=== PATIENT | male | born 1955 | race Caucasian/White ===

== ENCOUNTER 2021-10-26 06:29 | Emergency (ER) | payer OTHER ==
[~2021-10-26] VITALS: Ht 175.3 cm; Wt 90.7 kg
[~2021-10-26 06:29] MED LIST: ASPI325T4 OR; ATEN50TA OR; AZIT250T9 OR; CYCL-839 OR; FLUN0.02; GABA300C10 OR; GEMF-19 OR; IPRASOL44 IN; LISI-716 OR; MIRT1TAB14 OR; OMEP20TA37 OR; PERCOT PO; SIMV-8 OR; TERA2CAP45 OR
[2021-10-26] MEDS ORDERED: SODIUM CHLORIDE 0.9% 1,000 ML IV ONE (07:15)
[2021-10-26 10:21] LABS: Basophils # (auto) 0 10 ^3/uL (0-0.2); Eosinophils # (auto) 0 10 ^3/uL (0-0.8); Monocytes # (auto) 0.4 10 ^3/uL (0-1.3); Neutrophils # (auto) 4.4 10 ^3/uL (1.6-8.6); White Blood Cell 5.8 10^3/uL (4.4-10.8)
[2021-10-26 10:26] LABS: Basophils % (auto) 0.4 % (0.0-2.0); Hematocrit 40.6 % (41.0-53.0); Hemoglobin 13.9 g/dL (13.5-17.5); Lymphocytes # (auto) 0.9 10 ^3/uL (0.4-5.4); Lymphocytes % (auto) 15.6 % (10.0-50.0); Mean Corpuscular Hemoglobin 34.7 pg (28.0-32.0); Mean Corpuscular Hgb Conc. 34.3 g/dL (32.0-36.0); Mean Corpuscular Volume 101.1 fL (80.0-100.0); Monocytes % (auto) 7.2 % (0.0-12.0); Neutrophils % (auto) 76.8 % (37.0-80.0); Red Blood Cells 4.02 10^6/uL (4.5-5.90); Red Cell Distribution Width 14.1 % (11.8-14.3)
[2021-10-26 11:12] LABS: Albumin 3.5 g/dL (3.4-5.0); Potassium 3.9 mmol/L (3.5-5.1)
[2021-10-26 11:19] LABS: BUN/Creatinine Ratio 13.2; Bilirubin, Total 0.3 mg/dL (0.2-1.0)
[2021-10-26 12:09] VITALS: BP 127/70
[2021-10-26] MEDS ORDERED: DOCU-94 PO (12:28)
== END 2021-10-26 11:49 | disposition home or self-care (01) ==
LOC: EDBD 06:29 → ER 06:29
DX: R10.84 Generalized abdominal pain (principal); R11.2 Nausea with vomiting, unspecified; I10 Essential (primary) hypertension; I25.10 Atherosclerotic heart disease of native coronary artery without angina pectoris; Z79.82 Long term (current) use of aspirin; Z79.2 Long term (current) use of antibiotics; Z79.899 Other long term (current) drug therapy; Z88.0 Allergy status to penicillin
CPT/HCPCS: 36415; 71045; 74176; 80053; 84484; 85025; 96360; 96361; 99285; J7030

== ENCOUNTER 2024-07-21 21:41 | Inpatient (IN) | payer MEDICAID, MEDICARE, OTHER ==
[~2024-07-21] VITALS: Ht 167.6 cm; Wt 55.3 kg
[~2024-07-21 21:41] MED LIST changes: -ASPI325T4 OR; +ASPI325T6 OR; +AZIT-43 OR; -AZIT250T9 OR; +DOCU-94 PO; +GABA-1250 OR; -GABA300C10 OR; -GEMF-19 OR; +GEMF-66 OR; -LISI-716 OR; +LISI10TA34 OR; -SIMV-8 OR; +SIMV20TA20 OR; -TERA2CAP45 OR; +TERA2CAP79 OR
[2024-07-21 22:18] LABS: Hematocrit 43.1 % (41.0-53.0); Hemoglobin 14.4 g/dL (13.5-17.5); Mean Corpuscular Hemoglobin 29.8 pg (28.0-32.0); Mean Corpuscular Hgb Conc. 33.4 g/dL (32.0-36.0); Mean Corpuscular Volume 89.3 fL (80.0-100.0); Platelet Count (auto) 237 10^3/uL (140-450); Red Blood Cells 4.82 10^6/uL (4.5-5.90); Red Cell Distribution Width 16.6 % (11.8-14.3); White Blood Cell 12.7 10^3/uL (4.4-10.8)
[2024-07-21 22:24] LABS: Band Neutrophils % (manual) 0; Basophils % (manual) 0 (0.0-2.0); Blast Cells 0; Eosinophils % (manual) 0 (0-7); Metamyelocytes % 0; Myelocytes % 0; Promyelocytes % 0
[2024-07-21 22:31] LABS: Alanine Aminotransferase 34 U/L (7-40); Albumin 4.5 g/dL (3.2-4.8); Alkaline Phosphatase 92 U/L (46-116); Anion Gap 6 (5-15); Aspartate Aminotransferase 14 U/L (13-40); BUN/Creatinine Ratio 14.3 (10.0-20.0); Bilirubin, Total 0.3 mg/dL (0.2-1.0); Blood Urea Nitrogen 15 mg/dL (9-23); Calcium 9.6 mg/dL (8.7-10.4); Carbon Dioxide 29 mmol/L (20-31); Chloride 104 mmol/L (98-107); Glucose 205 mg/dL (74-106); Magnesium 2.2 mg/dL (1.6-2.6); Sodium 139 mmol/L (136-145); Total Protein 6.8 g/dL (5.7-8.2)
[2024-07-21 22:38] VITALS: PULSE 99; RESP 29; O2SAT 95
[2024-07-21 23:04] LABS: Lymphocytes % (manual) 10 (10.0-50.0); Reactive Lymphocytes 1
[2024-07-21 23:05] LABS: Monocytes % (manual) 10 (0-12); Platelet Estimate Adequate
[2024-07-21] MEDS: ALBUTEROL SULF 2.5 MG/0.5ML(0.5%) NEB SOLN NEB ONE (23:15)
[2024-07-21] MEDS: methylPREDNISolone SOD SUCC 125 MG/2 ML VL IV ONE (23:20)
[2024-07-22] VITALS (9 sets, daily range): BP systolic 111–133; BP diastolic 66–92; PULSE 59–78; RESP 18–22; TEMP 97.8–99.2; O2SAT 92–100
[2024-07-22] MEDS: ASPirin 81 mg TAB PO ONE
[2024-07-22] MEDS: NITROGLYCERIN 2% OINT 1GM PKG TD ONE (00:17)
[2024-07-22 00:39] LABS: Base Excess -4.8 mmol/L (-2.0-3.0)
[2024-07-22 01:53] LABS: Base Excess -1.8 mmol/L (-2.0-3.0)
[2024-07-22] MEDS ORDERED: MORPHINE SULFATE INJ 2 MG/ml SYRG IV PRN (04:30)
[2024-07-22] MEDS ORDERED: NITROGLYCERIN 0.4 MG SL TAB SL PRN (04:30)
[2024-07-22] MEDS ORDERED: ONDANSETRON HCL 4 MG/2 ML VIAL IV PRN (04:30)
[2024-07-22] MEDS: AZITHROMYCIN 500MG/ 250ML 250 ML IV ONE (05:53)
[2024-07-22] MEDS: IPRATROPIUM BROM 0.5 MG/2.5ML INH SOL NEB PRN (06:39)
[2024-07-22] MEDS: ALBUTEROL SULF 2.5 MG/0.5ML(0.5%) NEB SOLN NEB PRN (06:39)
[2024-07-22 07:02] LABS: Urine Bacteria None Seen /hpf (None Seen)
[2024-07-22 07:32] LABS: Urine Blood Negative /uL (Negative); Urine Clarity Clear (Clear); Urine Color Light-Yellow (Yellow); Urine Protein, UAD TRACE (Negative); Urine Specific Gravity 1.021 (1.001-1.035); Urine Urobilinogen Normal (Negative); Urine WBC <1 /hpf (0 - 3); Urine pH 5.5 (5.0-9.0)
[2024-07-22] MEDS: GEMFIBROZIL 600 MG TAB PO SCH (10:20)
[2024-07-22] MEDS: ASPirin 81 mg TAB PO SCH (10:21)
[2024-07-22] MEDS: ATENOLOL 25 MG TAB PO SCH (10:22)
[2024-07-22] MEDS: ENOXAPARIN SOD 40 MG/0.4 ML SYRINGE SC SCH (10:22)
[2024-07-22] MEDS: ATORVASTATIN 20 MG TAB PO SCH (21:20)
[2024-07-23] VITALS (15 sets, daily range): BP systolic 116–150; BP diastolic 66–88; PULSE 54–88; RESP 16–19; TEMP 97.4–98.2; O2SAT 93–100
[2024-07-23 07:09] LABS: Anion Gap 3 (5-15); Carbon Dioxide 34 mmol/L (20-31); Chloride 101 mmol/L (98-107); Potassium 4.6 mmol/L (3.5-5.1); Sodium 138 mmol/L (136-145)
[2024-07-23 07:15] LABS: BUN/Creatinine Ratio 26.9 (10.0-20.0); Blood Urea Nitrogen 21 mg/dL (9-23); Glucose 75 mg/dL (74-106)
[2024-07-23] MEDS: AZITHROMYCIN 500MG/ 250ML 250 ML IV SCH (10:11)
[2024-07-23] MEDS ORDERED: ALBUTEROL SULF 2.5 MG/0.5ML(0.5%) NEB SOLN NEB SCH (13:00)
[2024-07-23] MEDS ORDERED: IPRATROPIUM BROM 0.5 MG/2.5ML INH SOL NEB SCH (13:00)
[2024-07-23] MEDS: methylPREDNISolone SOD SUCC 40 MG/ML VL IV SCH (14:19)
[2024-07-23] MEDS: IPRATROPIUM BROM 0.5 MG/2.5ML INH SOL NEB SCH (14:59)
[2024-07-23] MEDS: ALBUTEROL SULF 2.5 MG/0.5ML(0.5%) NEB SOLN NEB SCH (14:59)
[2024-07-24] VITALS (16 sets, daily range): BP systolic 125–137; BP diastolic 65–81; PULSE 59–84; RESP 16–19; TEMP 97.7–98; O2SAT 92–100
[2024-07-24 07:35] LABS: COVID19 ANTIGEN SOFIA FIA NEGATIVE (NEGATIVE); Rapid Influenza A Negative (Negative); Rapid Influenza B Negative (Negative)
[2024-07-25] VITALS (15 sets, daily range): BP systolic 100–120; BP diastolic 58–75; PULSE 58–79; RESP 16–18; TEMP 97.8–98.6; O2SAT 92–99
[2024-07-26] VITALS (14 sets, daily range): BP systolic 103–129; BP diastolic 63–75; PULSE 53–80; RESP 16–18; TEMP 97.4–98.1; O2SAT 94–100
[2024-07-26] MEDS ORDERED: METH4PAK PO (13:07)
[2024-07-26] MEDS ORDERED: LEVO500T91 PO (13:07)
[2024-07-26] MEDS ORDERED: ALBUAER3 IN (13:07)
== END 2024-07-26 17:50 | disposition home or self-care (01) | DRG 189 ==
LOC: ER 21:41 → EDBD 21:41 → WEST WING 07-22 04:23 → TELE 07-22 04:29 → TELE-WESTW 07-22 17:17 → WEST WING 07-23 00:41
PROVIDERS: ADMIT Family Medicine; ATTEND Family Medicine
PROC: 5A09357 Assistance with Respiratory Ventilation, Less than 24 Consecutive Hours, Continuous Positive Airway Pressure (ICD-10-PCS; principal; 2024-07-22)
DX: J96.21 Acute and chronic respiratory failure with hypoxia (principal); I21.A1 Myocardial infarction type 2; J44.1 Chronic obstructive pulmonary disease with (acute) exacerbation; I10 Essential (primary) hypertension; I25.10 Atherosclerotic heart disease of native coronary artery without angina pectoris; F17.210 Nicotine dependence, cigarettes, uncomplicated; Z20.822 Contact with and (suspected) exposure to COVID-19; E78.00 Pure hypercholesterolemia, unspecified; Z91.199 Patient's noncompliance with other medical treatment and regimen due to unspecified reason; Z88.0 Allergy status to penicillin; Z91.148 Patient's other noncompliance with medication regimen for other reason
CPT/HCPCS: 36415; 36600; 70450; 71045; 80048; 80053; 81001; 82805; 82962; 83735; 83880; 84484; 85007; 85027; 87426; 87804; 93005; 93306; 94640; 97110; 97163; 99291; G0378